=== PATIENT | male | born 1945 | race Caucasian/White ===

== ENCOUNTER 2022-01-24 11:00 | Emergency (ER) | payer OTHER, SELFPAY ==
[2022-01-24 11:12] VITALS: BP 154/80; PULSE 60; RESP 18; TEMP 36.8; O2SAT 96
[2022-01-24 11:16] VITALS: TEMP 36.9
[2022-01-24 11:20] VITALS: BP 167/78; BP 199/77; PULSE 60; PULSE 63; RESP 19; TEMP 37.6; O2SAT 93; O2SAT 96; BMI 24.3
--- NOTE | 2022-01-24 11:31 | ECG_ITS ---
Test Reason : AMS Blood Pressure : / mmHG Vent. Rate : 065 BPM Atrial Rate : 065 BPM P-R Int : 182 ms QRS Dur : 110 ms QT Int : 432 ms P-R-T Axes : 000 -68 -18 degrees QTc Int : 449 ms Artifact in tracing Sinus rhythm with Premature supraventricular complexes Left axis deviation Right bundle branch block Minimal voltage criteria for LVH, may be normal variant ( R in aVL ) Abnormal ECG No previous ECGs available Referred By: Barbi Rodriguez Electronically Signed By:WENDIE VALENTIN
--- NOTE | 2022-01-24 11:33 | ED.AMS ---
HPI - Altered Mental Status General Chief Complaint: Altered Mental Status Stated Complaint: WEAKNESS,?AMS FROM SNF PER EMS Time Seen by Provider: 01/24/22 11:19 Source: patient and EMS Mode of arrival: EMS Limitations: no limitations History of Present Illness HPI narrative: Patient comes to emergency room from respite. According to the [facility] staff, patient has been there for 5 days. They called EMS for altered mental status. When EMS arrived, patient was alert and oriented x4. On arrival to the ED, patient is still alert and oriented x4, a bit teary, states that he misses his home and feels anxious. Patient denies any pain, denies any other symptoms. Patient also explains that earlier today, patient requested to the staff at the [facility] to help him up to the bathroom. Seems that patient went to the bathroom without oxygen, within 5 minutes, patient's oxygen saturation dropped significantly, patient states that during this time he recalls being very confused. Once his oxygen was restarted, patient started feeling better. Related Data Allergies Allergy/AdvReac Type Severity Reaction Status Date / Time No Known Allergies Allergy Verified 01/24/22 11:30 Review of Systems Review of Systems: Constitutional : No Weight loss, No Fever, No Chills, No Night Sweats, No Fatigue, No Malaise ENT/Mouth : No Hearing loss, No Ear Pain, No Nasal Congestion, No Sinus Pain, No Hoarseness, No sore throat, No Rhinorrhea, No Swallowing Difficulty Eyes: No Eye Pain, No Swelling, No Redness, No Foreign Body, No Discharge, No Vision Changes Cardiovascular : No Chest Pain, No SOB, No Dyspnea on Exertion, No Orthopnea, No Edema, No Palpitations Respiratory : No Cough, No Sputum, No Wheezing, No Smoke Exposure, No Dyspnea Gastrointestinal : No Nausea, No Vomiting, No Diarrhea, No Constipation, No abdominal Pain, No Hematochezia, No Melena Genitourinary : no irregular bleeding, No Dysuria, No Urinary Frequency, No Hematuria, No Urinary Incontinence, No Urgency, No Flank Pain, No Urinary Flow Changes, No Hesitancy Musculoskeletal : No joint pain, No Myalgias, No Joint Swelling Skin : No Skin Lesions, No rash Neuro : No Weakness, No Numbness, No Paresthesias, No Loss of Consciousness, No Dizziness, No Headache Psych : Feeling anxious, No Depression, No SI/HI/AH/VH, No Social Issues, Heme/Lymph: No Bruising, No Bleeding,No Lymphadenopathy Endocrine : No Polyuria, No Polydipsia, No Temperature Intolerance [facility] Past Medical History Medical History Anxiety BPH (benign prostatic hyperplasia) COPD (chronic obstructive pulmonary disease) CVA (cerebral vascular accident) Depression GERD (gastroesophageal reflux disease) Hepatitis C Hyperlipidemia Hypertension Peripheral vascular disease Retinal defect Type 2 diabetes mellitus Social History Social History Advance Directives: Yes Advance Directives Information Provided: No Advance Directives on File: No Physical Exam ED Vital Signs: Vital Signs - 24 hr 01/24/22 11:12 01/24/22 11:16 01/24/22 11:20 Temperature 98.3 F 98.5 F 99.7 F Pulse Rate 60 60 Respiratory Rate 18 19 Blood Pressure 154/80 H 167/78 H Pulse Oximetry 96 93 01/24/22 12:30 01/24/22 14:45 Temperature Pulse Rate 69 68 Respiratory Rate 15 18 Blood Pressure 167/78 H 175/96 H Pulse Oximetry 97 97 BMI result Body Mass Index 24.3 Const Other: Appearance: Alert. Oriented X4. No acute distress. Eyes: Pupils equal, round and reactive to light. ENT: Pharynx normal. Neck: Normal inspection. Neck supple. No lymph nodes noted. No crepitus CVS: Normal heart rate and rhythm. Pulses normal. Normal S1 and S2 Respiratory: No respiratory distress. Breath sounds normal. No Wheezing. No rales Abdomen: Soft and nontender. No rigidity. No distention. Skin: Skin warm and dry. Normal skin color. Normal skin turgor. Extremities: No lower extremity edema. No Lacerations. 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 No motor deficit. No sensory deficit. Moving all extremities. No slurred speech. CN 2 through 12 grossly intact Psych: calm, cooperative, teary Course Course Course Narrative: Patient states that he is anxious, he wants to home, usually lives with his son, [facility]. Patient voices no other complaints. Labs pending. Patient's initial BP showed mild ST changes in the lateral leads. A posterior EKG was negative. The techs were asked to reposition the stickers for the EKG, the 3rd EKG did not show any ST changes. Patient is completely asymptomatic. Patient remains asymptomatic, white blood cell count and lactic acid within normal limits, urine clean, red blood cells secondary to urethral catheterization. Patient has no fever, no symptoms. Sepsis not suspected. Symptoms likely related to anxiety. Patient alert and oriented x4. Patient will be returning to [facility] on [place] I was informed that the patient's family are at the bedside now, they were concerned the patient's oxygen saturation dropped to the 60s. I reviewed the telemetry/oxygen monitor, the oxygen did drop to the 60s, but it was with a poor waveform. Otherwise, patient has been saturating in the high 90s on 2 L. patient's son requested to leave him at 3 L which is his home dose. Patient states that he does not want to return to the intermediate facility, requesting to be sent home. Patient's son requested case management consult, to review the options of send the patient to a different facility versus sending the patient home. Case management spoke with the patient and with the patient's family. Patient will be returning home. MDM - Altered Mental Status Lab Data Result diagrams: 01/24/22 11:41 01/24/22 11:41 Labs: Lab Results 01/24/22 01/24/22 01/24/22 Range/Units 11:41 11:41 11:41 WBC 7.0 (4.8-10.8) X10*3/uL RBC 3.62 L (4.60-5.80) X10*6/uL Hgb 11.3 L (14.0-18.0) g/dl Hct 34.6 L (42.0-52.0) % MCV 95.6 (80.0-98.0) fL MCH 31.2 (27.0-33.0) pg MCHC 32.7 (31.0-36.0) g/dl RDW 12.8 (11.0-16.0) % Plt Count 127 L (160-400) X10*3/uL MPV 9.8 (9.4-12.4) fL Immature Gran % (Auto) 0.6 H (0.0-0.4) % Neut % (Auto) 84.0 H (45-73) % Lymph % (Auto) 8.0 L (20-40) % Nelson % (Auto) 6.4 (2-11) % Eos % (Auto) 0.4 (0-4) % Baso % (Auto) 0.6 (0-2) % Lymph # (Auto) 0.6 L (1.2-4.9) X10*3/uL Nelson # (Auto) 0.5 (0.1-1.2) X10*3/uL Eos # (Auto) 0.0 (0.0-0.4) X10*3/uL Baso # (Auto) 0.0 (0.0-0.2) X10*3/uL Abs Immat Gran (auto) 0.04 H (0.00-0.03) X10*3/uL Absolute Neuts (auto) 5.9 (2.0-8.3) x10*3/uL Absolute Nucleated RBC 0.000 (0.0-0.012) X10*3/uL Nucleated RBC % (auto) 0.0 (0.0-0.2) /100WBC Sodium 138 (135-145) mmol/L Potassium 4.2 (3.3-5.1) mmol/L Chloride 95 L (96-108) mmol/L Carbon Dioxide 36 H (22-29) mmol/L Anion Gap 11 L (12-20) BUN 25 H (9-16) mg/dL Creatinine 1.08 (0.5-1.4) mg/dL Estim Creat Clear Calc 58.1 Estimated GFR > 60 Random Glucose 161 H (60-115) mg/dL Lactic Acid (0.5-2.0) mmol/L Calcium 9.2 (8.4-10.2) mg/dL Total Bilirubin 0.5 (0.0-1.0) mg/dL Direct Bilirubin 0.2 (0.0-0.5) mg/dL AST 19 (5-37) U/L ALT 24 (0-40) U/L Alkaline Phosphatase 64 (39-117) U/L Total Protein 7.0 (6.5-8.0) g/dL Albumin 4.3 (3.5-5.0) g/dL Urine Color Urine Appearance Urine pH (5.0-8.0) Ur Specific [place] (1.005-1.025) Urine Protein (NEG-TRACE) MG/DL Urine Glucose (UA) (NEG) MG/DL Urine Ketones (NEG) MG/DL Urine Blood (NEG) Urine Nitrite (NEG) Ur Leukocyte Esterase (NEG) Urine RBC (0) /HPF Urine WBC (0-4) /HPF Ur Squamous Epith Cells /LPF Amorphous Sediment /LPF Urine Bacteria /LPF COVID-19 (SERGIO) Negative (Negative) COVID-19 Clin Com See Note 01/24/22 01/24/22 Range/Units 11:42 12:31 WBC (4.8-10.8) X10*3/uL RBC (4.60-5.80) X10*6/uL Hgb (14.0-18.0) g/dl Hct (42.0-52.0) % MCV (80.0-98.0) fL MCH (27.0-33.0) pg MCHC (31.0-36.0) g/dl RDW (11.0-16.0) % Plt Count (160-400) X10*3/uL MPV (9.4-12.4) fL Immature Gran % (Auto) (0.0-0.4) % Neut % (Auto) (45-73) % Lymph % (Auto) (20-40) % Nelson % (Auto) (2-11) % Eos % (Auto) (0-4) % Baso % (Auto) (0-2) % Lymph # (Auto) (1.2-4.9) X10*3/uL Nelson # (Auto) (0.1-1.2) X10*3/uL Eos # (Auto) (0.0-0.4) X10*3/uL Baso # (Auto) (0.0-0.2) X10*3/uL Abs Immat Gran (auto) (0.00-0.03) X10*3/uL Absolute Neuts (auto) (2.0-8.3) x10*3/uL Absolute Nucleated RBC (0.0-0.012) X10*3/uL Nucleated RBC % (auto) (0.0-0.2) /100WBC Sodium (135-145) mmol/L Potassium (3.3-5.1) mmol/L Chloride (96-108) mmol/L Carbon Dioxide (22-29) mmol/L Anion Gap (12-20) BUN (9-16) mg/dL Creatinine (0.5-1.4) mg/dL Estim Creat Clear Calc Estimated GFR Random Glucose (60-115) mg/dL Lactic Acid 0.7 (0.5-2.0) mmol/L Calcium (8.4-10.2) mg/dL Total Bilirubin (0.0-1.0) mg/dL Direct Bilirubin (0.0-0.5) mg/dL AST (5-37) U/L ALT (0-40) U/L Alkaline Phosphatase (39-117) U/L Total Protein (6.5-8.0) g/dL Albumin (3.5-5.0) g/dL Urine Color YELLOW Urine Appearance CLEAR Urine pH 7.0 (5.0-8.0) Ur Specific [place] 1.015 (1.005-1.025) Urine Protein 2+ H (NEG-TRACE) MG/DL Urine Glucose (UA) NEG (NEG) MG/DL Urine Ketones NEG (NEG) MG/DL Urine Blood TRACE (NEG) Urine Nitrite NEG (NEG) Ur Leukocyte Esterase NEG (NEG) Urine RBC 5-9 H (0) /HPF Urine WBC 1-4 (0-4) /HPF Ur Squamous Epith Cells 1+ /LPF Amorphous Sediment 1+ /LPF Urine Bacteria TRACE /LPF COVID-19 (SERGIO) (Negative) COVID-19 Clin Com Discharge Plan Discharge Clinical Impression: Anxiety Patient Disposition: Xfer [facility] Transfer Details: BACK TO [facility] ROOM 23-2 Instructions: Anxiety (ED) Additional Instructions: Please follow-up with your primary care physician tomorrow. If you have any worsening or new symptoms, please return to the emergency room or call 911
[2022-01-24 11:48] LABS: MANUAL DIFF FLAG NO
[2022-01-24 11:50] LABS: Basophils Percent Auto 0.6 % (0-2); Eosinophils Percent Auto 0.4 % (0-4); Hematocrit 34.6 % (42.0-52.0); Hemoglobin 11.3 g/dl (14.0-18.0); Imm Gran Abs Auto 0.04 X10*3/uL (0.00-0.03); Imm Gran Pct Auto 0.6 % (0.0-0.4); Lymphocytes Absolute Auto 0.6 X10*3/uL (1.2-4.9); Mean Corpuscular HGB Conc 32.7 g/dl (31.0-36.0); Mean Corpuscular Hemoglobin 31.2 pg (27.0-33.0); Mean Corpuscular Volume 95.6 fL (80.0-98.0); Mean Platelet Volume 9.8 fL (9.4-12.4); Monocytes Absolute Auto 0.5 X10*3/uL (0.1-1.2); Monocytes Percent Auto 6.4 % (2-11); Neutrophils Absolute Auto 5.9 x10*3/uL (2.0-8.3); Platelet Count 127 X10*3/uL (160-400); Red Blood Count 3.62 X10*6/uL (4.60-5.80); Red Cell Distribution Width 12.8 % (11.0-16.0)
[2022-01-24 11:59] LABS: Lactic Acid 0.7 mmol/L (0.5-2.0)
[2022-01-24 12:04] LABS: Alanine Aminotransferase 24 U/L (0-40); Albumin Level 4.3 g/dL (3.5-5.0); Alkaline Phosphatase 64 U/L (39-117); Anion Gap 11 (12-20); Aspartate Amino Transferase 19 U/L (5-37); Bilirubin Direct 0.2 mg/dL (0.0-0.5); Bilirubin Total 0.5 mg/dL (0.0-1.0); Blood Urea Nitrogen 25 mg/dL (9-16); Calcium 9.2 mg/dL (8.4-10.2); Carbon Dioxide 36 mmol/L (22-29); Chloride 95 mmol/L (96-108); Creatinine Clr Calc Pharmacy 58.1; Estimated Glomerular Filt Rate > 60; Glucose Random 161 mg/dL (60-115); Potassium 4.2 mmol/L (3.3-5.1); Sodium 138 mmol/L (135-145)
[2022-01-24 12:05] LABS: COVID-19 Test Negative (Negative)
[2022-01-24 12:30] VITALS: BP 167/78; PULSE 69; RESP 15; O2SAT 97
--- NOTE | 2022-01-24 12:36 | ECG_ITS ---
Test Reason : ams Blood Pressure : / mmHG Vent. Rate : 061 BPM Atrial Rate : 061 BPM P-R Int : 200 ms QRS Dur : 132 ms QT Int : 454 ms P-R-T Axes : 080 -69 079 degrees QTc Int : 457 ms Sinus rhythm with Premature atrial complexes with Aberrant conduction Right bundle branch block Left anterior fascicular block Bifascicular block Abnormal ECG When compared with ECG of 24-JAN-2022 11:46, Right bundle branch block has replaced RSR' pattern in V1 Questionable change in initial forces of Anteroseptal leads Referred By: Barbi Rodriguez Electronically Signed By:WENDIE VALENTIN
--- NOTE | 2022-01-24 12:36 | ECG_ITS ---
Test Reason : ams Blood Pressure : / mmHG Vent. Rate : 062 BPM Atrial Rate : 062 BPM P-R Int : 140 ms QRS Dur : 122 ms QT Int : 444 ms P-R-T Axes : -13 -71 076 degrees QTc Int : 450 ms Artifact in tracing Sinus rhythm with Premature supraventricular complexes RSR' or QR pattern in V1 suggests right ventricular conduction delay Left anterior fascicular block Possible Anteroseptal infarct , age undetermined Abnormal ECG When compared with ECG of 24-JAN-2022 11:38, No significant changes seen Referred By: Barbi Rodriguez Electronically Signed By:WENDIE VALENTIN
[2022-01-24 12:42] LABS: Appearance Urine CLEAR; Color Urine YELLOW; Glucose Urine UA NEG (NEG); Leukocyte Esterase Urine NEG (NEG); Nitrite Urine NEG (NEG); Specific Gravity - Urine 1.015 (1.005-1.025); UACC Culture Trigger NO; Urine Blood TRACE (NEG); Urine Ketones NEG (NEG); Urine Protein 2+ MG/DL (NEG-TRACE)
[2022-01-24 12:51] LABS: Amorphous Sediment Urine 1+ /LPF; Squamous Epithelial Cell Urine 1+ /LPF
[2022-01-24 12:52] LABS: Bacteria Urine TRACE /LPF
[2022-01-24 14:45] VITALS: BP 175/96; PULSE 68; RESP 18; O2SAT 97
--- NOTE | 2022-01-24 15:33 | MHC.CM.ED ---
Received case management consult from Dr Rodriguez. Patient came to the ER due to AMS from [facility] on [place]. Work up has been negative. Per Dr Rodriguez, patient does not want to return to [facility]. Met with patient, sister Keely and son Steve in regards to discharge planning. Patient and family do not want patient to return to [facility] on [place]. [facility] aware. Patient will still need BLS transport with [facility]. Action aware. Patient and family is denying the need for VNA. DR Rodriguez and Torie RN aware. Continue to monitor for d/c needs.
== END 2022-01-24 16:00 | disposition skilled nursing facility (03) ==
PROVIDERS: Emergency Provider Emergency Medicine
DX: F41.9 Anxiety disorder, unspecified (principal); R53.1 Weakness; Z20.822 Contact with and (suspected) exposure to COVID-19; Z72.89 Other problems related to lifestyle; E11.9 Type 2 diabetes mellitus without complications; I10 Essential (primary) hypertension; E78.5 Hyperlipidemia, unspecified; Z86.73 Personal history of transient ischemic attack (TIA), and cerebral infarction without residual deficits
CPT/HCPCS: 51701; 80048; 80076; 81001; 83605; 85025; 87040; 87635; 93005; 99284